=== PATIENT | female | born 1975 ===

== ENCOUNTER 2023-10-28 08:32 | Emergency (ER) | payer SELFPAY ==
[~2023-10-28] VITALS: Ht 162.6 cm; Wt 61.4 kg
[2023-10-28 08:36] VITALS: TEMP 98
[2023-10-28] MEDS ORDERED: ACET-2247 PO (08:38)
[2023-10-28 09:19] VITALS: BP 116/76; PULSE 72; RESP 16
== END 2023-10-28 09:29 | disposition home or self-care (01) ==
LOC: EMS 08:34
DX: K08.89 Other specified disorders of teeth and supporting structures (principal); Z90.710 Acquired absence of both cervix and uterus; Z88.6 Allergy status to analgesic agent
CPT/HCPCS: 99282; Z7502